=== PATIENT | male | born 1955 | race Caucasian/White ===

== ENCOUNTER 2019-05-20 | Emergency (ER) | payer MEDICARE, OTHER ==
[2019-05-20] MEDS ORDERED: FLEXERIL5 M1 PO (11:37)
[2019-05-20] MEDS ORDERED: MEDDOSEPAK PO (11:37)
[2019-10-11] MEDS ORDERED: HYDROCODONE/ACE1 TAB PO ×2 (13:09→13:10)
[2019-10-11] MEDS ORDERED: LYRICA150 MG PO (13:13)
[2019-10-11] MEDS ORDERED: GABAPENTIN400 M2 PO (14:36)
[2019-10-11] MEDS ORDERED: METOPROL TAR25 M1 PO (14:37)
[2019-10-11] MEDS ORDERED: ISOSORBID1 PO (14:39)
[2019-10-11] MEDS ORDERED: LISINOPRIL30 MG PO (14:40)
[2019-10-11] MEDS ORDERED: CLOPIDOGREL75 MG PO (14:40)
[2019-10-11] MEDS ORDERED: NORVASC2.5 M1 PO (14:40)
[2019-10-11] MEDS ORDERED: METFORMIN500 M2 PO (14:41)
[2019-10-11] MEDS ORDERED: LIPITOR80 M1 PO (14:41)
[2019-10-11] MEDS ORDERED: ASPIRIN 81 LOW81 MG PO (14:42)
== END 2019-05-20 11:53 | disposition home or self-care (01) ==
DX: M54.42 Lumbago with sciatica, left side (principal); I10 Essential (primary) hypertension

== ENCOUNTER 2019-10-14 09:48 | Emergency (ER) | payer OTHER, MEDICARE ==
[~2019-10-14 09:48] MED LIST: ASPIRIN 81 LOW81 MG PO; CLOPIDOGREL75 MG PO; FLEXERIL5 M1 PO; GABAPENTIN400 M2 PO; HYDROCODONE/ACE1 TAB PO; ISOSORBID1 PO; LIPITOR80 M1 PO; LISINOPRIL30 MG PO; LYRICA150 MG PO; MEDDOSEPAK PO; METFORMIN500 M2 PO; METOPROL TAR25 M1 PO; NORVASC2.5 M1 PO
[2019-10-14 10:22] LABS: HEMATOCRIT 36.4 % (39.0-50.0); HEMOGLOBIN 12.1 g/dl (14.0-18.0); IMMATURE GRANULOCYTES 0.2 % (0.0-5.0); MEAN CELL VOLUME 87.7 fL CALC (80.0-100.0); MEAN CORPUSCULAR HGB 29.2 pG CALC (26.0-32.0); MEAN CORPUSCULAR HGB CONC 33.2 g/dL CAL (32.0-36.0); NEUT# 2.76 thou/uL (1.82-7.42); RED BLOOD COUNT 4.15 mill/uL (4.70-6.10); RED CELL DISTRI WIDTH 12.6 % (11.5-15.5)
[2019-10-14 10:33] LABS: ALBUMIN 4.2 g/dL (3.2-5.0); ALKALINE PHOSPHATASE 82 u/l (38-126); ANION GAP 14 (6-22 (CALC)); BILIRUBIN, TOTAL 0.4 mg/dL (0.0-1.4); BUN 24 mg/dL (8-23); BUN/CREATININE RATIO 22 (12-20 (CALC)); CARBON DIOXIDE 22 mmol/l (22-30); CHLORIDE 103 mmol/l (95-108); CREATININE 1.1 mg/dL (0.7-1.3); GFR > 60 ML/MIN (>=60 (CALC)); GFR FOR AFR.AMER. > 60 ML/MIN (>=60 (CALC)); POTASSIUM 4.3 mmol/l (3.5-5.1); SGOT/AST 22 u/l (19-48); SODIUM 134 mmol/l (137-146); TOTAL PROTEIN 6.6 g/dL (6.3-8.2)
[2019-10-14 11:56] VITALS: BP 122/77
== END 2019-10-14 11:50 | disposition home or self-care (01) | DRG 204 ==
LOC: ED 09:48
PROVIDERS: Student in an Organized Health Care Education/Training Program
DX: R06.00 Dyspnea, unspecified (principal); M54.30 Sciatica, unspecified side; I10 Essential (primary) hypertension

== ENCOUNTER 2019-10-26 07:14 | Day surgery (SDC) | payer OTHER, MEDICARE ==
[2019-10-26 09:18] VITALS: BP 102/50
== END 2019-10-26 09:40 | disposition home or self-care (01) | DRG 558 ==
LOC: ORM 07:14
PROVIDERS: ATTEND Anesthesiology Pain Medicine
DX: M70.62 Trochanteric bursitis, left hip (principal); Z01.84 Encounter for antibody response examination